=== PATIENT | male | born 1980 | race Caucasian/White ===

== ENCOUNTER 2019-04-28 01:01 | Emergency (ER) | payer BC ==
[~2019-04-28] VITALS: Ht 188 cm; Wt 99.8 kg
--- NOTE | 2019-04-28 01:20 | NUR ---
Patient came in with staff member from [facility] for c/o left lower leg muscle spasm that started in the AM of 04/27/19. Patient is in rehab for methadone abuse and muscle spasm ins 02/18 upon arrival.
[2019-04-28] MEDS ORDERED: diphenhydrAMINE 50 MG/1 ML VIAL ONE (01:23)
[2019-04-28] MEDS ORDERED: diphenhydrAMINE 50 MG/1 ML VIAL IM ONE (01:30)
[2019-04-28] MEDS ORDERED: LORAZEPAM 2 MG/1 ML VIAL IM ONE (02:00)
[2019-04-28] MEDS ORDERED: LORAZEPAM 2 MG/1 ML VIAL ONE (02:00)
--- NOTE | 2019-04-28 02:05 | NUR ---
Patient states left leg muscle spasm is at 8/10 at this time.
[2019-04-28] MEDS ORDERED: GABAPENTIN 300 MG CAPSULE ONE ×2 (02:06→02:51)
[2019-04-28] MEDS ORDERED: GABAPENTIN 300 MG CAPSULE PO ONE ×2 (02:15→03:00)
--- NOTE | 2019-04-28 02:50 | NUR ---
Patient states leg pain is 7/10. Requesting for more pain meds.
--- NOTE | 2019-04-28 02:57 | NUR ---
Patient comfortable enough to go back to rehab with left leg muscle spasm.
--- NOTE | 2019-04-28 03:00 | NUR ---
Patient discharged to home in stable conditon with staff member from rehab. Written and verbal after care instructions given. Patient verbalizes understanding of instructions. Walked out of ER with no distress noted.
[2019-04-28 03:01] VITALS: BP 125/89
== END 2019-04-28 03:02 | disposition home or self-care (01) ==
LOC: ER 01:08
DX: F11.23 Opioid dependence with withdrawal (principal)
CPT/HCPCS: 96372; 99283; J1200; J2060; A4663